=== PATIENT | female | born 1990 | race Two or more races ===

== ENCOUNTER 2020-02-09 21:57 | Emergency (ER) | payer MEDICAID, OTHER, SELFPAY ==
[~2020-02-09] VITALS: Ht 154.9 cm; Wt 60.9 kg
[2020-02-09 23:04] LABS: BASOPHILS % (AUTO) 0 % (0-1); EOSINOPHILS % (AUTO) 1 % (1-7); LYMPHOCYTES % (AUTO) 28 % (22-44); MEAN CORPUSCULAR HEMOGLOBIN 31.5 pg (27.0-34.8); MEAN CORPUSCULAR HGB CONC 34.1 g/dL (32.4-35.8); MEAN PLATELET VOLUME 8.2 fL (7.4-10.4); MONOCYTES % (AUTO) 7 % (2-9); NEUTROPHILS % (AUTO) 65 % (42-75); PLATELET COUNT 283 x10^3/uL (130-400); RED BLOOD COUNT 4.32 x10^6/uL (3.82-5.3); RED CELL DISTRIBUTION WIDTH 12.4 % (9.6-15.2)
[2020-02-09 23:05] LABS: MD NO
[2020-02-09 23:07] LABS: ALANINE AMINOTRANSFERASE 30 U/L (12-78); ALBUMIN 3.9 g/dL (3.4-5.0); ANION GAP 4 mmol/L (5-15); CALCIUM 8.4 mg/dL (8.5-10.1); CHLORIDE 108 mmol/L (98-107); CREATININE 0.76 mg/dL (0.55-1.02)
[2020-02-09 23:11] LABS: ALKALINE PHOSPHATASE 67 U/L (45-117); BILIRUBIN,TOTAL 0.4 mg/dL (0.2-1.0); TOTAL PROTEIN 7.1 g/dL (6.4-8.2)
--- NOTE | 2020-02-09 23:44 | NUR ---
pt to room from lobby, back from ct
--- NOTE | 2020-02-10 00:12 | NUR ---
ASSUMED CARE OF PT AT THIS TIME FROM LOBBY. FIRST CONTACT WITH PT. 29 Y/O F PRESENTS STATING "AT HOME, FELT SUPER SHARP PAIN ON RIGHT KIDNEY, FELT LIKE I HAD TO PEE, STILL FELT NEED TO PEE AFTER, TOOK SOME IBUPROFEN AND PAIN SO BAD IT MADE ME COLLAPSE ON BED, I HAD KIDNEY STONES IN PAST AND FEELS SAME, NO BURNING OR BLOOD IN MY PEE." REPORTS R FLANK PAIN HAS "DIMINISHED, PAIN MOSTLY IN BLADDER." RATES PAIN 2/. ASSESSMENT COMPLETED. CONT PULSE OX, BP MONITORS APPLIED. VSS. LMP "BEGINNING OF JANUARY, CAN'T REMEMBER DATE." DENIES . PT AMBULATED TO RESTROOM WITH STEADY GAIT FOR UA SAMPLE. MOTHER AT BEDSIDE. FALL PRECAUTIONS IN PLACE. CALL LIGHT IN REACH. AWAITING EVAL BY ERP.
[2020-02-10 00:24] VITALS: BP 103/68
--- NOTE | 2020-02-10 00:24 | NUR ---
PT BACK FROM RESTROOM, CLEAN CATCH UA COLLECTED AND SENT TO LAB. AWAITING CT RESULTS AND EVAL BY ERP. RESTING COMFORTABLY. VSS. MOTHER AT BEDSIDE. FALL PRECAUTIONS IN PLACE.
--- NOTE | 2020-02-10 00:26 | NUR ---
ELADIA ORDOÑEZ AT BEDSIDE FOR EVALAUTION
[2020-02-10 00:42] LABS: MICROSCOPIC INDICATED
--- NOTE | 2020-02-10 01:15 | NUR ---
BEDSIDE REPORT AND TRANSFER OF CARE AT THIS TIME TO ABDIEL RAJAN
--- NOTE | 2020-02-10 02:11 | NUR ---
IN & OUT CATH PT. RECEIVED CLEAN URINE SAMPLE. WALKED TO LAB FOR REDRAW UA.
[2020-02-10 02:16] LABS: MICROSCOPIC INDICATED
[2020-02-10] MEDS ORDERED: HYDROcodone/APAP 5/325 TABLET ONE (02:56)
[2020-02-10] MEDS: HYDROcodone/APAP 5/325 TABLET PO ONE ×2 (02:59→03:00)
== END 2020-02-10 03:32 | disposition home or self-care (01) ==
LOC: ED 02-10 00:33
DX: N13.2 Hydronephrosis with renal and ureteral calculous obstruction (principal); R10.9 Unspecified abdominal pain
CPT/HCPCS: 36415; 74176; 80053; 81001; 84703; 85025; 87086; 99284